=== PATIENT | male | born 1950 | race American Indian/Alaskan Native ===

== ENCOUNTER 2018-05-11 08:03 | Emergency (ER) | payer OTHER, MEDICARE ==
[~2018-05-11] VITALS: Ht 177.8 cm; Wt 93.4 kg
[~2018-05-11 08:03] MED LIST: ADALAT CC60 MG PO; ASPIRIN EC81 MG PO; CLOPIDOGREL75 MG PO; GLIPIZIDE XL5 MG PO; MICARDIS40 MG PO; MYVITALIFE1 EACH PO; NEXIUM20 MG PO; PERCOCET 10-321 EACH PO; VITAMIN D2000 UNI1 PO; VITAMIN D400 UNIT PO
[2018-05-11] MEDS ORDERED: MEDROL4 M1 PO (09:00)
[2018-05-11] MEDS ORDERED: PEPCID40 MG PO (09:00)
[2018-05-11] MEDS ORDERED: ZYRTEC10 MG PO (09:00)
--- NOTE | 2018-05-12 19:40 | EKG ---
[facility] [address] [facility] [place], [place] [address] Signed Normal sinus rhythm Normal ECG No previous ECGs available Confirmed by HUMAIRA GALLEGOS MD ([id number] on 05/12/2018 7:39:56 PM Electronically Signed By: HUMAIRA GALLEGOS MD 05/12/181939 PATIENT NAME: RANDY BASSETT Electrocardiogram DATE OF : 50 PHYSICIAN: HUMAIRA GALLEGOS MD REPORT #: [id number] REPORT IS CONFIDENTIAL AND NOT TO BE RELEASED WITHOUT AUTHORIZATION
== END 2018-05-11 09:15 | disposition home or self-care (01) ==
LOC: ED 08:03
DX: T63.441A Toxic effect of venom of bees, accidental (unintentional), initial encounter (principal); R55 Syncope and collapse; I25.2 Old myocardial infarction; Z86.73 Personal history of transient ischemic attack (TIA), and cerebral infarction without residual deficits; E11.9 Type 2 diabetes mellitus without complications; I10 Essential (primary) hypertension; Z88.0 Allergy status to penicillin; Z91.040 Latex allergy status; Z79.899 Other long term (current) drug therapy; Z79.82 Long term (current) use of aspirin
CPT/HCPCS: 80053; 85025; 93005; 93010; 96361; 96374; 96375; 99283; J1200; J2930; J7030